=== PATIENT | female | born 1995 | race Hispanic/Latino ===

== ENCOUNTER 2017-08-06 22:55 | Emergency (ER) | payer MEDICAID | END 2017-08-06 23:32 | disposition home or self-care (01) | LOC: EDH 22:55 | DX: H61.21 Impacted cerumen, right ear (principal) | CPT/HCPCS: 69209; 99282 ==

== ENCOUNTER 2019-06-17 09:06 | Inpatient (IN) | payer MEDICAID ==
[~2019-06-17] VITALS: Ht 144.8 cm; Wt 54.0 kg
[2019-06-17] MEDS ORDERED: LACTATED RINGERS 1000ML 1,000 ML IV PRN (10:20)
[2019-06-17 10:23] VITALS: BP 112/64
[2019-06-17 10:29] LABS: HEMATOCRIT 36.8 % (36-48); MEAN CORPUSCULAR HEMOGLOBIN 28.2 pg (27.0-33.0); MEAN CORPUSCULAR HGB CONC 33.2 g/dL (32.0-36.0); PLATELET COUNT (AUTO) 222 K/uL (130-400); RED BLOOD CELL COUNT(AUTO) 4.33 MIL/uL (4.00-5.50); RED CELL DISTRIBUTION WIDTH 14.6 % (11.0-15.5); WHITE BLOOD COUNT (AUTO) 11.9 K/uL (4.8-10.8)
[2019-06-17] MEDS ORDERED: OXYTOCIN-LR 20 UNITS/1000 ML 1,000 ML IV SCH ×2 (10:30→11:30)
[2019-06-17] MEDS ORDERED: BUTORPHANOL TARTRATE 2 MG/ML IVP PRN (10:30)
[2019-06-17] MEDS ORDERED: AMPICILLIN 2GM+NS 100ML 100 ML IV SCH (10:30)
[2019-06-17] MEDS ORDERED: OXYTOCIN 10 USP UNITS/ML 20 UNIT in LACTATED RINGERS 1000ML 1,000 ML IV SCH (10:30)
[2019-06-17 10:31] LABS: APPEARANCE,URINE Clear (CLEAR); BILIRUBIN,URINE Negative (NEGATIVE); COLOR,URINE Yellow (YELLOW); GLUCOSE, URINE (UA) Negative (NEGATIVE); KETONES,URINE Negative (NEGATIVE); LEUKOCYTE ESTERASE ,URINE Trace (NEGATIVE); NITRATE,URINE Negative (NEGATIVE); OCCULT BLOOD,URINE Trace (NEGATIVE); PROTEIN,URINE Negative (NEGATIVE)
[2019-06-17] MEDS ORDERED: AMPICILLIN 2GM+NS 100ML 100 ML IV ONE (10:52)
[2019-06-17] MEDS ORDERED: BUTORPHANOL TARTRATE 2 MG/ML ONE (10:56)
[2019-06-17] MEDS ORDERED: OXYTOCIN-LR 20 UNITS/1000 ML 1,000 ML IV ONE (11:02)
[2019-06-17 11:09] LABS: BACTERIA,URINE Few /HPF (None Seen); MUCUS,URINE Few LPF (None Seen); RBC,URINE 0-1 /HPF (0-1); WBC,URINE 0-1 /HPF (0-1)
[2019-06-17] MEDS ORDERED: ACETAMINOPHEN-CODEINE 300/30MG TAB PO PRN (14:15)
[2019-06-17] MEDS ORDERED: DIPH,PERTUSS(ACELL),TET VAC/PF 0.5 ML VIAL IM PRN (14:15)
[2019-06-17] MEDS ORDERED: WITCH HAZEL 1 PAD TP PRN (14:15)
[2019-06-17] MEDS ORDERED: BENZOCAINE/LANOLIN/ALOE VERA 60 ML AEROSOL TP PRN (14:15)
[2019-06-17] MEDS ORDERED: ACETAMINOPHEN 325 MG TAB PO PRN (14:15)
[2019-06-17] MEDS ORDERED: MEASLES/MUMPS/RUBELLA VACCINE, LIVE 0.5 ML/VIAL SQ PRN (14:15)
[2019-06-17] MEDS ORDERED: LANOLIN 30GM OINTMENT TP PRN (14:15)
[2019-06-17 16:00] VITALS: BP 113/70
[2019-06-17] MEDS ORDERED: FERR-82 PO (16:33)
[2019-06-17] MEDS ORDERED: PREN-18 PO (16:33)
[2019-06-17 19:22] VITALS: BP 119/62
[2019-06-17] MEDS: DOCUSATE SODIUM 100 MG CAP PO SCH (20:42)
[2019-06-17] MEDS: IBUPROFEN 600 MG TABLET PO PRN (20:42)
[2019-06-17] MEDS: AMPICILLIN 1GM+NS 50ML 50 ML IV SCH (22:30)
[2019-06-17 23:56] VITALS: BP 112/60
[2019-06-18] MEDS: AMPICILLIN 1GM+NS 50ML 50 ML IV SCH (02:30)
[2019-06-18 03:23] VITALS: BP 101/57
[2019-06-18 05:10] LABS: HEMATOCRIT 29.5 % (36-48); MEAN CORPUSCULAR HEMOGLOBIN 27.8 pg (27.0-33.0); MEAN CORPUSCULAR HGB CONC 32.5 g/dL (32.0-36.0); MEAN CORPUSCULAR VOLUME 85.5 fL (79-99); PLATELET COUNT (AUTO) 195 K/uL (130-400); RED BLOOD CELL COUNT(AUTO) 3.45 MIL/uL (4.00-5.50); RED CELL DISTRIBUTION WIDTH 14.5 % (11.0-15.5); WHITE BLOOD COUNT (AUTO) 11.4 K/uL (4.8-10.8)
[2019-06-18 07:37] VITALS: BP 96/57
[2019-06-18 08:10] LABS: HEPATITIS Bs ANTIGEN SCREEN P Negative (Negative)
[2019-06-18] MEDS: DOCUSATE SODIUM 100 MG CAP PO SCH (09:22)
[2019-06-18] MEDS: IBUPROFEN 600 MG TABLET PO PRN (09:23)
--- NOTE | 2019-06-18 11:40 | NUR ---
HX of THC abuse /CPS REPORT Sw met with pt and her fiancee Roberto Pinedo. Couple have been off and on since age 13, they have 3 kids together,4(g),3(b) and NB son CR PINEDO. Couple live with her mother Carina Henriquez and pt's grandmother. Pt is independent, drives, stay at home mom, has Medicaid, and [employer] stamp assistance, and will apply for WIC [place]. Couple has basic items for including car seat and Dr Carr will follow at [place]. Couple has good family support system in place Pt denies any hx of abuse, domestic violence, mental health, post depression, or arrests. Pt has hx with CPS in 2016 for being positive for THC at delivery. Pt admits to smoking marijuana 1 to 2x a week until was confirmed to nurses, but to SW stated she last smoked THC in September. Pt states she never smokes around kids and smokes it when offered by friends. Pt was negative on delivery no UDS or meconium done on baby. Sherrie called report to CPS # [id number] to [facility] xt [phone]. At this time not enough to send report to local office since pt was negative and baby was not tested, per Merly. Addendum: 06/18/19 at 1150 by PAULY YAÑEZ Amended: Links added.
--- NOTE | 2019-06-18 12:35 | NUR ---
DISCHARGE INSTRUCTIONS READ AND EXPLAINED TO PATIENT. HANDOUT FOR COVID 19 INFORMATION REVIEWED WITH PATIENT. RX FOR MOTRIN 800MG AND COLACE 100MG GIVEN TO PATIENT. QUESTIONS INVITED AND ANSWERED. PT VOICED UNDERSTANDING ON ALL INFORMATION.
--- NOTE | 2019-06-18 14:00 | NUR ---
PATIENT LEFT UNIT VIA WHEELCHAIR WITH BABY IN ARMS ACCOMPANIED BY SIGNIFICANT OTHER. FAMILY USED PERSONAL VEHICLE FOR TRANSPORTATION OF PATIENT AND BABY. SECURE IN CARSEAT.
== END 2019-06-18 14:00 | disposition home or self-care (01) | DRG 560 ==
LOC: OBSVTOIN 09:06 → LDH 09:06 → WSH 16:00
PROVIDERS: ADMIT Obstetrics & Gynecology; ATTEND Obstetrics & Gynecology
PROC: 10E0XZZ Delivery of Products of Conception, External Approach (ICD-10-PCS; principal; 2019-06-17)
PROC: 0HQ9XZZ Repair Perineum Skin, External Approach (ICD-10-PCS; 2019-06-17)
PROC: 10907ZC Drainage of Amniotic Fluid, Therapeutic from Products of Conception, Via Natural or Artificial Opening (ICD-10-PCS; 2019-06-17)
PROC: 3E0234Z Introduction of Serum, Toxoid and Vaccine into Muscle, Percutaneous Approach (ICD-10-PCS; 2019-06-17)
PROC: 3E0134Z Introduction of Serum, Toxoid and Vaccine into Subcutaneous Tissue, Percutaneous Approach (ICD-10-PCS; 2019-06-17)
DX: O77.0 Labor and delivery complicated by meconium in amniotic fluid (principal); Z37.0 Single live birth; O70.0 First degree perineal laceration during delivery; O99.824 Streptococcus B carrier state complicating childbirth; Z3A.39 39 weeks gestation of pregnancy; Z23 Encounter for immunization
CPT/HCPCS: 36415; 81001; 85027; 86592; 86850; 86900; 86901; 87340; G0378; J0290; J0595; J2590

== ENCOUNTER 2019-08-07 06:39 | Day surgery (SDC) | payer MEDICAID ==
[2019-08-01 12:19] LABS: BASOPHILS % (AUTO) 0.5 % (0.0-5.0); EOSINOPHILS % (AUTO) 3.3 % (0.0-8.0); HEMATOCRIT 38.8 % (36-48); LYMPHOCYTES % (AUTO) 31.6 % (21.0-51.0); MEAN CORPUSCULAR HEMOGLOBIN 27.9 pg (27.0-33.0); MEAN CORPUSCULAR HGB CONC 32.5 g/dL (32.0-36.0); MEAN CORPUSCULAR VOLUME 85.8 fL (79-99); NEUTROPHILS % (AUTO) 57.3 % (40.0-77.0); PLATELET COUNT (AUTO) 241 K/uL (130-400); RED BLOOD CELL COUNT(AUTO) 4.52 MIL/uL (4.00-5.50); RED CELL DISTRIBUTION WIDTH 13.1 % (11.0-15.5); WHITE BLOOD COUNT (AUTO) 6.5 K/uL (4.8-10.8)
[2019-08-06] MEDS: CALDOLOR 800MG+NS 250ML 250 ML IV SCH (11:15)
[~2019-08-07] VITALS: Ht 149.9 cm; Wt 48.2 kg
[2019-08-07] VITALS (18 sets, daily range): BP systolic 107–134; BP diastolic 64–85
[~2019-08-07 06:39] MED LIST: CEFAZOLIN SODIUM 1 GM VIAL ONE; FERR-82 PO; LACTATED RINGERS 1000ML 1,000 ML IV ONE; PREN-18 PO
[2019-08-07] MEDS ORDERED: BUPIVACAINE/PF 0.25% 30ML VIAL IJ ONE (07:02)
[2019-08-07] MEDS ORDERED: MIDAZOLAM HCL 1 MG/ML 2ML VIAL ONE (07:17)
[2019-08-07] MEDS ORDERED: SUCCINYLCHOLINE CHLORIDE 20 MG/ML 10 ML VIAL ONE (07:17)
[2019-08-07] MEDS ORDERED: LIDOCAINE PF 2% 5ML ABBOJECT ONE (07:17)
[2019-08-07] MEDS ORDERED: PROPOFOL 10 MG/ML 20ML VIAL IV ONE (07:18)
[2019-08-07] MEDS ORDERED: FENTANYL CITRATE PF 50 MCG/1 ML 2ML VIAL ONE (07:18)
[2019-08-07] MEDS ORDERED: DEXAMETHASONE SOD PHOSPHATE 4 MG/ML 1ML VIAL ONE (07:18)
[2019-08-07] MEDS ORDERED: ONDANSETRON HCL 4 MG/2 ML VIAL ONE (07:19)
[2019-08-07] MEDS: CALDOLOR 800MG+NS 250ML 250 ML IV SCH (07:24)
[2019-08-07] MEDS: CEFAZOLIN SODIUM 1 GM VIAL IVP SCH ×2 (07:24→07:45)
[2019-08-07] MEDS ORDERED: ROCURONIUM 10MG/1ML SYR 10 MG/ML ML ONE (07:52)
[2019-08-07] MEDS ORDERED: NEOSTIGMINE 5MG/5ML SYR IV ONE (07:55)
[2019-08-07] MEDS ORDERED: GLYCOPYRROLATE 1 MG/5 ML SYRINGE ONE (07:55)
[2019-08-07] MEDS ORDERED: EPHEDRINE SULFATE 50 MG/ML AMPULE ONE (07:56)
[2019-08-07] MEDS ORDERED: LACTATED RINGERS 1000ML 1,000 ML IV SCH (08:00)
[2019-08-07] MEDS ORDERED: MEPERIDINE-PF 25 MG/ML SYG ONE (08:41)
--- NOTE | 2019-08-07 09:20 | NUR ---
POST PROCEDURE RECEIVED FROM RR S/ BTL VIA STRETCHER. AWAKE IN NO ACUTE DISTRESS. DENIES PAIN. CONNECTED TO CONTINUOUS CARDIOPULMONARY MONITORING. SIDE RAILS UP X2, BED IN LOWEST POSITION, AND CALL LIGHT W/IN REACH.
--- NOTE | 2019-08-07 09:31 | NUR ---
DISCHARGE DISCHARGE INSTRUCTIONS INCLUDING DAY PT DISCHARGE INSTRUCTION SHEET AND PT SUMMARY REVIEWED WITH THANG ENGLISH, PTS . THANG VERBALIZED UNDERSTANDING.
--- NOTE | 2019-08-07 10:39 | NUR ---
DISCHARGE DISCHARGED VIA W/C AWAKE IN NO ACUTE DISTRESS.
== END 2019-08-07 10:38 | disposition home or self-care (01) ==
LOC: DAH 06:39
PROVIDERS: ATTEND Obstetrics & Gynecology
DX: Z30.2 Encounter for sterilization (principal)
CPT/HCPCS: 36415; 58670; 84703; 85025; 86850; 86900; 86901; A4213; A4215; A4221; A4222; A4223; A4351; A4663; A4930 ×2; A6260; C1769 ×2; G0168; J0330; J0690; J1100; J2001; J2175; J2250; J2405; J2704; J2710; J3010; J3490 ×3; J7030 ×2; J7120; U0003; J1741

== ENCOUNTER 2023-12-02 17:04 | Emergency (ER) | payer MEDICAID ==
[~2023-12-02] VITALS: Ht 152.4 cm; Wt 45.4 kg
[2023-12-02 17:08] VITALS: BP 120/75; PULSE 62; RESP 18; TEMP 98.4; O2SAT 98
== END 2023-12-02 18:08 | disposition home or self-care (01) ==
LOC: EDH 17:04
DX: D17.21 Benign lipomatous neoplasm of skin and subcutaneous tissue of right arm (principal)
CPT/HCPCS: 99281